=== PATIENT | male | born 1985 | race Caucasian/White ===

== ENCOUNTER 2023-04-07 09:54 | Inpatient (IN) ==
[2023-04-07] MEDS ORDERED: SODIUM CHLORIDE 0.9% 1,000 ML IV STA (10:44)
--- NOTE | 2023-04-07 10:49 | Emergency Department Note ---
History of Present Illness General Chief complaint: Referred by Doctor Stated complaint: NEEDS CT DONE Time Seen by Provider: 04/07/23 10:37 Source: patient, RN notes reviewed and old records reviewed (I have reviewed notes that are from Dr. Ambriz's office visit today) Mode of arrival: ambulatory Limitations: no limitations History of Present Illness Maximum Pain Intensity: 10 This patient is a 37-year-old male who is currently an inmate at [facility], comes in after having [place] anal pain and swelling for the last week. He says he is actually had something back there for about 2 years but got worse over the last week. He was seen by Dr. Ambriz earlier today who thought that he had a perianal abscess with possible fistula and sent him to the ER for CAT scan IV and labs. The patient has had no fever, no trauma ,no bleeding or discharge from the rectal area or abscess . no abdominal pain. Denies allergies. No history of similar . no history abdominal surgery. No history of Crohn's disease or ulcerative colitis. Home Medications Medication Instructions Recorded Confirmed Type ascorbic acid (vitamin C) 500 mg 500 mg PO DAILY 04/07/23 04/07/23 History tablet famotidine 20 mg tablet 20 mg PO DAILY 04/07/23 04/07/23 History hydrocortisone 1 % topical cream 1 applic topical TID PRN 04/07/23 04/07/23 History (Preparation H Hydrocortisone) lactobacillus combination no.4 3 3,000 mmu cells PO DAILY 04/07/23 04/07/23 History billion cell capsule (Probiotic) sertraline 25 mg tablet (Zoloft) 25 mg PO DAILY 04/07/23 04/07/23 History witch calvin 50 % topical pads 1 pad topical DAILY 04/07/23 04/07/23 History (Tucks (witch calvin)) Allergies Allergy/AdvReac Type Severity Reaction Status Date / Time No Known Allergies Allergy Verified 04/07/23 09:22 Past Med/Surg History Social History Smoking Status: Never smoker Preferred Language: Chinese Current Living Situation Comment: incarcerated Feels Safe at Home: Yes Review of Systems A total of 10 systems reviewed and were otherwise negative Physical Exam Vital Signs Vital Signs - 24 hr 04/07/23 10:17 04/07/23 10:44 04/07/23 10:45 Temperature 36.5 C Temperature Source Temporal Artery Scan Pulse Rate 112 H 102 H Pulse Rhythm Regular Pulse Rhythm [Left Finger] Regular Pulse Strength [Left Finger] Normal Respiratory Rate 18 20 Respiratory Effort / Characteristics Non-Labored Spontaneous Respiratory Depth Normal Normal Respiratory Pattern Regular Blood Pressure 116/69 Blood Pressure [Left Arm] 115/61 Blood Pressure Mean 84 Blood Pressure Mean [Left Arm] 79 Blood Pressure Position Sitting Blood Pressure Position [Left Arm] Sitting Pulse Oximetry 99 97 97 Oxygen Delivery Method Room Air Room Air Room Air Sepsis Recent Fever Within 48 Hours No Sepsis New/Unexplained Change in Mental Status No Sepsis Action Taken by Nursing No Action Required 04/07/23 12:21 Temperature Temperature Source Pulse Rate 105 H Pulse Rhythm Pulse Rhythm [Left Finger] Pulse Strength [Left Finger] Respiratory Rate Respiratory Effort / Characteristics Respiratory Depth Respiratory Pattern Blood Pressure Blood Pressure [Left Arm] Blood Pressure Mean Blood Pressure Mean [Left Arm] Blood Pressure Position Blood Pressure Position [Left Arm] Pulse Oximetry Oxygen Delivery Method Sepsis Recent Fever Within 48 Hours Sepsis New/Unexplained Change in Mental Status Sepsis Action Taken by Nursing General: Well developed well nourished slender young male who appears in no acute distress, breathing comfortably on room air. Normal speech HEENT: Normal cephalic atraumatic. Pupils are equal round and reactive to light. Extraocular movements are intact. Oropharynx is pink with moist mucous membranes. No swelling of the mouth lips or tongue. Neck: Supple with a midline trachea. No meningeal signs or stiffness, no JVD or bruits. No Stridor. Chest: Clear to auscultation bilaterally. No wheezes or rhonchi. No increased work of breathing. Heart: Regular rate and rhythm without murmurs or gallops. Abdomen: Soft nontender, nondistended without rebound guarding or rigidity. Extremities: No cyanosis clubbing or edema. No calf tenderness or assymetry Spine/Back. Non tender to palpation. No CVA tenderness Skin: Good turgor without rashes. Neurologic exam: Nonfocal moving all 4 extremities symmetrically Course Administered Medications Discontinued Medications Sodium Chloride (Nss) 1,000 mls @ 999 mls/hr IV .Q1H1M STA Stop: 04/07/23 11:44 Last Admin: 04/07/23 11:13 Dose: 999 mls/hr Documented By: SWD Piperacillin Sod/Tazobactam Sod (Zosyn) 4.5 gm in 100 mls @ 200 mls/hr IV NOW ONE Stop: 04/07/23 12:29 Last Admin: 04/07/23 12: Dose: 200 mls/hr Documented By: JOYCE Ioversol (Optiray 320 500ml) 89 ml IV ONCE ONE Stop: 04/07/23 12:09 Last Admin: 04/07/23 12:08 Dose: 89 ml Documented By: TWYLA Ketorolac Tromethamine (Ketorolac Tromethamine 15 Mg/Ml Vial) 10 mg IV NOW ONE Stop: 04/07/23 12:03 Last Admin: 04/07/23 12: Dose: 10 mg Documented By: JOYCE Medical Decision Making Differential Diagnosis Perirectal abscess, fistula, infection, sepsis, electrolyte or metabolic abnormality Medical Records Attestation: I reviewed the patient's medical records. Home Medications Current Medication List: was personally reviewed by me Laboratory Data Attestation: I reviewed the patient's lab results. 04/07/23 11:04 04/07/23 11:04 Lab Results 04/07/23 04/07/23 Range/Units 11:04 Unknown WBC 8.84 (4.8-10.8) K/ul RBC 4.64 L (4.70-6.10) M/uL Hgb 14.2 (14.0-18.0) g/dl Hct 40.2 L (42.0-52.0) % MCV 86.6 (80.0-100.0) fL MCH 30.6 (25.0-34.0) pg MCHC 35.3 (32.0-36.0) g/dL RDW Std Deviation 35.4 L (36.4-46.3) fL RDW Coeff of Arun 11.2 L (11.5-14.5) % Plt Count 109 L (130-400) K/uL MPV 9.7 (9.4-12.4) fL Immature Gran % (Auto) 0.2 % Neut % (Auto) 80.2 % Lymph % (Auto) 10.7 % [place] % (Auto) 8.8 % Eos % (Auto) 0.0 % Baso % (Auto) 0.1 % Neut # (Auto) 7.08 H (1.40-6.50) K/uL Lymph # (Auto) 0.95 L (1.20-3.40) K/uL [place] # (Auto) 0.78 H (0.11-0.59) K/uL Eos # (Auto) 0.00 (0.00-0.50) K/uL Baso # (Auto) 0.01 (0.00-0.20) K/uL Immature Gran # (Auto) 0.02 (0.01-0.20) K/uL Sodium 138 (136-145) mmol/L Potassium 3.7 (3.5-5.1) mmol/L Chloride 102 (98-107) mmol/L Carbon Dioxide 27 (21-32) mmol/L Anion Gap 9 (3-11) BUN 9 (6-23) mg/dl Creatinine 0.84 (0.6-1.4) mg/dl Est Cr Clr Drug Dosing 106.6 ml/min Est GFR ( Amer) 130.6 ml/min Est GFR (Non-Af Amer) 112.6 ml/min BUN/Creatinine Ratio 10.7 (10-20) Glucose 112 H (70-99(Fasting)) mg/dl Calcium 9.2 (8.6-10.3) mg/dl Total Bilirubin 0.9 (0.2-1.0) mg/dl AST 15 (13-39) U/L ALT 14 (7-52) U/L Alkaline Phosphatase 57 (34-104) U/L Total Protein 6.5 (6.0-8.3) gm/dl Albumin 4.3 (3.4-5.0) gm/dl Globulin 2.2 L (2.5-4.0) gm/dl Albumin/Globulin Ratio 2.0 (0.9-2) Lipase 35 (11-82) U/L Urine Color Yellow Urine Appearance Clear (Clear) Urine pH 6.0 (4.5-7.5) Ur Specific [place] 1.003 (1.000-1.030) Urine Protein Negative (Negative) Urine Glucose (UA) Negative (Negative) Urine Ketones Trace H (Negative) Urine Blood Negative (Negative) Urine Nitrite Negative (Negative) Urine Bilirubin Negative (Negative) Urine Urobilinogen Negative (Negative) Ur Leukocyte Esterase Negative (Negative) SARS-CoV-2, RNA, NAAT NEGATIVE (NEGATIVE) Imaging Data Attestation: I personally reviewed and interpreted this imaging study as follows: My Impression: CAT scan of the abdomen and pelvisthere is a large left-sided perirectal abscess Radiologist's Impression: Abdomen/Pelvis CT 04/07/23 10:44 CT abd pelvis IV con only CLINICAL HISTORY: eval for perirectal abscess/fistula TECHNIQUE: Helical axial images of the abdomen and pelvis were obtained and displayed. Automated dose lowering techniques and/or adjustment according to patient size were utilized for this exam. This exam was performed with intravenous contrast. CT DOSE: 796.77 mGy.cm COMPARISON: None available at the time of this dictation. FINDINGS: Lower chest: No acute abnormality. Liver: Unremarkable. No focal lesions are seen. Gallbladder and biliary tree: No calcified gallstones. Normal caliber wall. No intra- or extrahepatic biliary ductal dilation. Pancreas: Unremarkable, no focal lesions. Spleen: Unremarkable. Adrenals: Unremarkable. Kidneys and ureters: Unremarkable. Bladder: Unremarkable. Reproductive organs: Unremarkable. Bowel: The appendix is normal. There is a large perirectal abscess on the left measuring 30 x 68 mm with surrounding fat stranding. There is a likely tract extending to the rectum. Lymph nodes Retroperitoneal: Unremarkable. Pelvic: Unremarkable. Mesenteric: Unremarkable. Peritoneum: Normal. Vessels: Unremarkable. Abdominal wall: Bilateral fat-containing inguinal hernias are seen. Bones: Unremarkable. IMPRESSION: Large left perirectal abscess is seen with associated cellulitis. ACT 112: Negative or not required by law. Electronically signed by: Elan Phillips M.D. 04/07/2023 12:33 PM [facility] Narrative This patient comes in as described above. He was placed in room C3. He is here for treatment evaluation of rectal pain and swelling with a perirectal abscess. He was seen by his surgeon Dr. Ambriz earlier who sent him to the ER for CAT scan labs and likely admission. I did order IV as well as normal saline bolus 1 L. Multiple blood testing was obtained and I ordered a CAT scan as well. He was reassessed frequently. His white count is not elevated and he is afebrile here he has no significant anemia he is no significant provide or metabolic abnormalities. COVID testing was negative. He was given Zosyn 4.5 g IV for antibiotic coverage and Toradol 10 mg IV for pain. CAT scan was obtained and shows a large left-sided perirectal abscess. I did talk to Dr. Ambriz in consultation and he plans on admitting the patient for IV antibiotics and surgery. Impression & Plan Abscess, perirectal, Pain in rectum, Lab test negative for COVID-19 virus Discharge Plan Visit Data Chief Complaint: Referred by Doctor Stated Complaint: NEEDS CT DONE ED Provider: Louis Montgomery Discharge Problem: Abscess, perirectal, Pain in rectum, Lab test negative for COVID-19 virus Forms Stand Alone Forms: My [facility] Prescriptions Prescriptions: No Action sertraline [Zoloft] 25 mg tablet 25 mg PO DAILY famotidine 20 mg tablet 20 mg PO DAILY Probiotic 3 billion cell capsule 3,000 mmu cells PO DAILY Rx Instructions: administer with a meal ascorbic acid (vitamin C) 500 mg tablet 500 mg PO DAILY Tucks (witch calvin) 50 % pads, medicated 1 pad topical DAILY hydrocortisone [Preparation H Hydrocortisone] 1 % cream 1 applic topical TID PRN Referrals Referrals: PCP,NO [Physician] -
[2023-04-07 11:31] LABS: Basophils # (auto) 0.01 K/uL (0.00-0.20); Basophils % (auto) 0.1 %; Hematocrit (blood only) 40.2 % (42.0-52.0); Hemoglobin 14.2 g/dl (14.0-18.0); Immature Granulocytes # (auto) 0.02 K/uL (0.01-0.20); Immature Granulocytes % (auto) 0.2 %; Lymphocytes # (auto) 0.95 K/uL (1.20-3.40); Lymphocytes % (auto) 10.7 %; Mean Corpuscular Hemoglobin 30.6 pg (25.0-34.0); Mean Corpuscular Hgb Conc 35.3 g/dL (32.0-36.0); Mean Corpuscular Volume 86.6 fL (80.0-100.0); Mean Platelet Volume 9.7 fL (9.4-12.4); Monocytes # (auto) 0.78 K/uL (0.11-0.59); Monocytes % (auto) 8.8 %; Neutrophils # (auto) 7.08 K/uL (1.40-6.50); Neutrophils % (auto) 80.2 %; Platelet Count 109 K/uL (130-400); RDW Coefficient of Variation 11.2 % (11.5-14.5); RDW Standard Deviation 35.4 fL (36.4-46.3); Red Blood Count 4.64 M/uL (4.70-6.10); White Blood Count 8.84 K/ul (4.8-10.8)
[2023-04-07 11:49] LABS: Albumin Level 4.3 gm/dl (3.4-5.0); BUN Creatinine Ratio 10.7 (10-20); Bilirubin,Total 0.9 mg/dl (0.2-1.0); Calcium 9.2 mg/dl (8.6-10.3); Creatinine Clr Calc Pharmacy 106.6 ml/min; Est GFR (African American) 130.6 ml/min; Est GFR (Non-African American) 112.6 ml/min; Globulin 2.2 gm/dl (2.5-4.0); Potassium 3.7 mmol/L (3.5-5.1); Total Protein 6.5 gm/dl (6.0-8.3)
[2023-04-07] MEDS ORDERED: PIPERACILLIN/TAZOBACTAM 4.5 GM/100 ML BAG IV ONE (12:00)
[2023-04-07] MEDS ORDERED: KETOROLAC TROMETHAMINE 15 MG/ML VIAL IV ONE (12:02)
[2023-04-07 12:03] LABS: Appearance Urine Clear (Clear); Bilirubin Urine Negative (Negative); Blood Urine Negative (Negative); Color Urine Yellow; Glucose Urine UA Negative (Negative); Ketones Urine Trace (Negative); Leukocyte Esterase Urine Negative (Negative); Nitrite Urine Negative (Negative); Protein Urine Negative (Negative); Specific Gravity Urine 1.003 (1.000-1.030); Urobilinogen Urine Negative (Negative)
[2023-04-07] MEDS ORDERED: OPTIRAY 320 500ml IV ONE (12:08)
--- NOTE | 2023-04-07 12:35 | CT Scan Report ---
CT abd pelvis IV con only CLINICAL HISTORY: eval for perirectal abscess/fistula TECHNIQUE: Helical axial images of the abdomen and pelvis were obtained and displayed. Automated dose lowering techniques and/or adjustment according to patient size were utilized for this exam. This e xam was performed with intravenous contrast. CT DOSE: 796.77 mGy.cm COMPARISON: None available at the time of this dictation. FINDINGS: Lower chest: No acute abnormality. Liver: Unremarkable. No focal lesions are seen. Gallbladder and biliary tree: No calcified gallstones. Normal caliber wall. No intra- or extrahepatic biliary ductal dilation. Pancreas: Unremarkable, no focal lesions. Spleen: Unremarkable. Adrenals: Unremarkable. Kidneys and ureters: Unremarkable. Bladder: Unremarkable. Reproductive organs: Unremarkable. Bowel: The appendix is normal. There is a large perirectal abscess on the left measuring 30 x 68 mm w ith surrounding fat stranding. There is a likely tract extending to the rectum. Lymph nodes Retroperitoneal: Unremarkable. Pelvic: Unremarkable. Mesenteric: Unremarkable. Peritoneum: Normal. Vessels: Unremarkable. Abdominal wall: Bilateral fat-containing inguinal hernias are seen. Bones: Unremarkable. IMPRESSION: Large left perirectal abscess is seen with associated cellulitis. ACT 112: Negative or not required by law. Electronically signed by: Elan Phillips M.D. 04/07/2023 12:33 PM
--- NOTE | 2023-04-07 12:58 | History & Physical Bridge Note ---
Date of Service April 07, 2023 History & Physical Bridge Note I have examined the patient, reviewed the History & Physical and in the interval since the performance of the History & Physical I have noted the following changes of clinical significance: no changes noted ct reviewed. large abcess. likely associated fistula. will plan incision and drainage today. discussed risks/options.
[2023-04-07] MEDS ORDERED: LACTATED RINGER'S 1,000 ML IV SCH (14:00)
[2023-04-07] MEDS ORDERED: DEXAMETHASONE SOD INJ 4 MG/ML VIAL ONE (14:15)
[2023-04-07] MEDS ORDERED: LIDOCAINE 2% 2 ML VIAL/AMP(20MG/ML) INFIL ONE (14:15)
[2023-04-07] MEDS ORDERED: PROPOFOL IV EMULSION 10 MG/ML 20 ML VIAL IV ONE (14:15)
[2023-04-07] MEDS ORDERED: fentaNYL citrate PF 100 MCG/2 ML VIAL ONE ×2 (14:15→14:54)
[2023-04-07] MEDS ORDERED: ONDANSETRON INJ 2 MG/ML 2 ML VIAL ONE (14:15)
[2023-04-07] MEDS ORDERED: MIDAZOLAM HCL 1 MG/ML 2ML VIAL ONE (14:15)
[2023-04-07] MEDS ORDERED: ONDANSETRON INJ 2 MG/ML 2 ML VIAL IV PRN ×2 (14:28→16:58)
[2023-04-07] MEDS ORDERED: fentaNYL citrate PF 100 MCG/2 ML VIAL IV PRN (14:28)
[2023-04-07] MEDS ORDERED: ATROPINE SULFATE 0.1 MG/ML 10ML SYR IV PRN (14:28)
[2023-04-07] MEDS ORDERED: ePHEDrine sulfate 50 MG/ML AMP IV PRN (14:28)
[2023-04-07] MEDS ORDERED: PROMETHAZINE HCL 6.25 MG in SODIUM CHLORIDE 0.9% 50 ML IV PRN (14:28)
--- NOTE | 2023-04-07 14:28 | Anesthesiology Consultation ---
Date of Service April 07, 2023 Assessment & Plan Chart Review Chart Review: Acceptable Risk for Surgery and Patient NOT seen in Pre Admission Testing Consults Requested none ASA ASA1 Proposed Anesthesia Anesthesia Type: General Risk / Benefits Reviewed With: PT / POA / Parent / Guardian, Accepts Plan and Informed Consent Obtained History Surgery Operation Date: 04/07/23 07:00 Proposed Procedures p Incision and Drainage Perianal Abscess - Tre Ambriz, DO Height/Weight Height: 5 ft 7 in Weight: 62 kg Allergies Allergy/AdvReac Type Severity Reaction Status Date / Time No Known Allergies Allergy Verified 04/07/23 09:22 Medications Home Medications Medication Instructions Recorded Confirmed Last Taken ascorbic acid (vitamin C) 500 mg 500 mg PO DAILY 04/07/23 04/07/23 Unknown tablet famotidine 20 mg tablet 20 mg PO DAILY 04/07/23 04/07/23 Unknown hydrocortisone 1 % topical cream 1 applic topical TID PRN 04/07/23 04/07/23 Unknown (Preparation H Hydrocortisone) lactobacillus combination no.4 3 3,000 mmu cells PO DAILY 04/07/23 04/07/23 Unknown billion cell capsule (Probiotic) sertraline 25 mg tablet (Zoloft) 25 mg PO DAILY 04/07/23 04/07/23 Unknown witch calvin 50 % topical pads 1 pad topical DAILY 04/07/23 04/07/23 Unknown (Tucks (witch calvin)) Active Medications Generic Name Dose Route Start Last Admin Trade Name Freq PRN Reason Stop Dose Admin Lactated Ringer's 1,000 mls @ 15 mls/hr 04/07/23 14:00 04/07/23 13:55 Lr IV 05/07/23 13:59 15 mls/hr .Q24H JUAQUIN Administration NPO Date Last Intake of Fluids: 04/07/23 Time Last Intake of Fluids: 08:00 Last Intake of Fluids Comment: Pt reports drinking approximately 1/2 gallon total of black coffee & water Exercise / Class Metabolic Activity II 4-5 Yardwork/Stairs/Walk up hill Past Anesthesia History No Hx of Anesthesia Complications and No Family Hx of Anesthesia Complications History of PONV No Hx of PONV and No Hx of Motion Sickness Social History Smoking Status: Never smoker Physical Exam Vital Signs Last Vital Signs Temp 37 C 04/07/23 13:40 Pulse 96 H 04/07/23 13:40 Resp 20 04/07/23 13:40 BP 128/64 04/07/23 13:40 Pulse Ox 100 04/07/23 13:40 O2 Del Method Room Air 04/07/23 13:40 ENMT Mouth: no dentition abnormality Thyromental Distance: > or= 3.5 Finger Breadths Mallampati Class: II Neck normal visual inspection Respiratory normal respiratory effort Auscultation: lungs clear to auscultation bilaterally Cardiovascular Rate/Rhythm: regular rate and regular rhythm Psychiatric Orientation: alert Testing Laboratory Results 04/07/23 11:04 04/07/23 11:04 Urine Color Yellow 04/07/23 Unknown Urine Appearance Clear (Clear) 04/07/23 Unknown Urine pH 6.0 (4.5-7.5) 04/07/[address] 1.003 (1.000-1.030) 04/07/23 Unknown Urine Protein Negative (Negative) 04/07/23 Unknown Urine Glucose (UA) Negative (Negative) 04/07/23 Unknown Urine Ketones Trace (Negative) H 04/07/23 Unknown Urine Nitrite Negative (Negative) 04/07/23 Unknown Ur Leukocyte Esterase Negative (Negative) 04/07/23 Unknown
[2023-04-07] MEDS ORDERED: BUPIVACAINE LIPOSOME 1.3% 266 MG/20 ML VIAL ONE (14:33)
[2023-04-07] MEDS ORDERED: HYDROmorphone INJ 2 MG/ML SYR/VIAL ONE (15:11)
--- NOTE | 2023-04-07 15:32 | Operative Report ---
PG Post Operative Report Pre & Post Diagnosis Operation Date: 04/07/23 07:00 <No data on this case meets the specified criteria> Pre op diagnosis: cecilia-anal abcess post op diagnosis: same I identified the patient and participated in the time-out.: Yes Procedure Operation Date: 04/07/23 07:00 <No data on this case meets the specified criteria> incision and drainage of cecilia-anal abcess Surgeon Tre Ambriz, DO Cardiac Care Nurse none Estimated Blood Loss 25 Findings Consistent with Post-Op Diagnosis Specimens fluid for gram stain/culture/sensitivity Description of Procedure After informed consent was obtained the patient was taken the operating room placed in supine position. After successful placement of a laryngeal mask airway the patient was placed into high lithotomy position. The entire perineum and rectum were sterilely prepped and draped in usual fashion. A 15 blade scalpel was used to make a vertical incision directly over the visible/ palpable abscess. I immediately encountered a large amount of purulent foul-smelling fluid. A Sample was taken and sent for Gram stain culture and sensitivity. I was able to finger fractionate the entire cavity which extended superiorly towards the scrotum as well as posteriorly. I then thoroughly irrigated the wound. 1/2 inch Garo drain was placed into the cavity and sutured to the skin using 2-0 silk. 20 cc of Exparel was injected around the surgical site for postoperative analgesia. Gauze and cecilia-pad was placed. Patient was placed in the supine position extubated and transferred to recovery in stable condition. I attest to the content of the Intraoperative Record and any orders documented therein. Any exceptions are noted below.
--- NOTE | 2023-04-07 15:41 | Anesthesiology Progress Note ---
Date of Service April 07, 2023 Anesthesia Post Procedure Vital Signs Vital Signs: Temp Pulse Pulse Pulse Resp BP BP 04/07/23 13:40 37 C 96 H 20 128/64 04/07/23 12:21 105 H 04/07/23 12:00 104 H 20 124/70 04/07/23 10:45 115/61 04/07/23 10:44 102 H 20 04/07/23 10:17 36.5 C 112 H 18 116/69 Pulse Ox O2 Del Method 04/07/23 13:40 100 Room Air 04/07/23 12:21 04/07/23 12:00 97 Room Air 04/07/23 10:45 97 Room Air 04/07/23 10:44 97 Room Air 04/07/23 10:17 99 Room Air Pain Intensity Rectal: Pain Intensity: 10 Transfer of Care Handoff Completed per policy Notes Mental Status: alert / awake / arousable Patient Amnestic to Procedure: Yes Nausea / Vomiting: adequately controlled Pain: adequately controlled Airway Patency, RR, SpO2: stable & adequate BP & HR: stable & adequate Hydration State: stable & adequate Anesthetic Complications: no major complications apparent
[2023-04-07] MEDS ORDERED: MoRPHine SULFATE 2 MG/ML CARP IV PRN (16:58)
[2023-04-07] MEDS: LACTATED RINGER'S 1,000 ML IV SCH (17:24)
[2023-04-07] MEDS: ACETAMINOPHEN 1,000 MG/100 ML VIAL IV SCH (18:19)
[2023-04-07] MEDS: PIPERACILLIN/TAZOBACTAM 4.5 GM in DEXTROSE 5% MINI-B 100 ML IV SCH (18:38)
[2023-04-07] MEDS: oxyCODONE HCL IR 5 MG TAB (IMMEDIATE RELEASE) PO PRN (20:12)
[2023-04-08] MEDS: oxyCODONE HCL IR 5 MG TAB (IMMEDIATE RELEASE) PO PRN ×3 (00:21→11:36)
[2023-04-08] MEDS: ACETAMINOPHEN 1,000 MG/100 ML VIAL IV SCH ×2 (02:29→09:55)
[2023-04-08] MEDS: PIPERACILLIN/TAZOBACTAM 4.5 GM in DEXTROSE 5% MINI-B 100 ML IV SCH ×2 (02:55→10:21)
[2023-04-08] MEDS: LACTATED RINGER'S 1,000 ML IV SCH (05:14)
[2023-04-08 06:33] LABS: Basophils # (auto) 0.01 K/uL (0.00-0.20); Basophils % (auto) 0.1 %; Hematocrit (blood only) 38.7 % (42.0-52.0); Hemoglobin 13.8 g/dl (14.0-18.0); Immature Granulocytes # (auto) 0.04 K/uL (0.01-0.20); Immature Granulocytes % (auto) 0.5 %; Lymphocytes # (auto) 1.06 K/uL (1.20-3.40); Lymphocytes % (auto) 12.6 %; Mean Corpuscular Hemoglobin 30.6 pg (25.0-34.0); Mean Corpuscular Hgb Conc 35.7 g/dL (32.0-36.0); Mean Corpuscular Volume 85.8 fL (80.0-100.0); Mean Platelet Volume 10.2 fL (9.4-12.4); Monocytes # (auto) 0.32 K/uL (0.11-0.59); Monocytes % (auto) 3.8 %; Platelet Count 127 K/uL (130-400); RDW Coefficient of Variation 11.2 % (11.5-14.5); RDW Standard Deviation 34.8 fL (36.4-46.3); Red Blood Count 4.51 M/uL (4.70-6.10); White Blood Count 8.43 K/ul (4.8-10.8)
[2023-04-08 06:55] LABS: Calcium 8.9 mg/dl (8.6-10.3); Creatinine Clr Calc Pharmacy 104.1 ml/min; Est GFR (African American) 129.3 ml/min; Est GFR (Non-African American) 111.6 ml/min; Potassium 3.3 mmol/L (3.5-5.1)
[2023-04-08] MEDS ORDERED: SERTRALINE HCL 50 MG TABLET PO SCH (09:00)
[2023-04-08] MEDS ORDERED: POTASSIUM CHLORIDE CRTAB 20 MEQ TABCR PO STA (09:34)
--- NOTE | 2023-04-08 10:10 | Surgery Progress Note ---
Date of Service April 08, 2023 Assessment & Plan (1) Abscess, perirectal: Plan: Pt reports pain is tolerable with IV Tylenol and PO med states he had sweats over night, not feeling feverish, no documented fevers VSS. Denies CP, SOB, N,V Concern with having a bowel movement post procedure, reinfection, and pain control once he is back at his facility. Currently receiving IV Zosyn [facility] facilities typically have Tylenol with codeine , will write for this on D/C instructions. Instructed to cleanse rectal area with NSS after BMs and BID. As above. Okay for discharge. Instructions given. I recommend sitz bath's if available at the facility as well as stool softeners twice daily. He will also need antibiotics for approximately 10 days (2) Hypokalemia: Plan: K+ was 3.3 ordered 40MEQ PO stat Admission and Anticipated Discharge Date Admission Date: April 07, 2023 Subjective Pt reports pain is tolerable with IV Tylenol and PO med states he had sweats over night Concern with having a bowel movement post procedure and pain control once he is back at his facility. Review of Systems Constitutional: + chills (over night) and + sweats; no f ever Eyes: + corrective lenses Ear, Nose, Mouth, Throat: no problem reported Respiratory: no cough and no dyspnea Cardiovascular: no chest pain Gastrointestinal: no abdominal pain, no nausea and no vomiting Genitourinary: no dysuria Musculoskeletal: no muscle weakness Neurologic: no confusion Physical Exam Physical Exam: alert oriented Constitutional: well developed, cooperative and comfortable; no acute distress ENMT: external ear and nose normal, oropharynx normal Respiratory: normal respiratory effort and able to speak in complete sentences; no respiratory distress Cardiovascular: Rate/Rhythm: regular rate Gastrointestinal (Abdomen): Inspection/Auscultation: abdomen not distended Post operative [place] drain in place, small amount of bloody drainage noted on gauze Results & Data Vital Signs (Past 12 Hours) Vital Signs Temp Pulse Resp BP Pulse Ox O2 Del Method 04/08/23 07:32 97.7 F 71 15 112/70 97 Room Air 04/08/23 05:30 98.1 F 04/07/23 23:53 98.6 F 67 18 101/62 97 Room Air Results Complete Blood Count Results: RBC 4.51 M/uL (4.70-6.10) L 12/20/23 WBC 8.43 K/ul (4.8-10.8) 04/08/23 Hgb 13.8 g/dl (14.0-18.0) L 04/08/23 Hct 38.7 % (42.0-52.0) L 04/08/23 Plt Count 127 K/uL (130-400) L 04/08/23 Results BMP Results: Sodium 141 mmol/L (136-145) 04/08/23 Potassium 3.3 mmol/L (3.5-5.1) L 04/08/23 Chloride 108 mmol/L (98-107) H 04/08/23 Carbon Dioxide 22 mmol/L (21-32) 04/08/23 Anion Gap 11 (3-11) 04/08/23 BUN 12 mg/dl (6-23) 04/08/23 Creatinine 0.86 mg/dl (0.6-1.4) 04/08/23 Glucose 154 mg/dl (70-99(Fasting)) H 04/08/23 PG Care Time/CCT Total # of Minutes Spent Total Time Spent with Patient: Total time spent is greater than 50% in coordination of care (as documented) at patient's floor/unit and/or counseling patient: Coding Level of Care Code 05763 Post Operative Follow-Up Diagnoses Abscess, perirectal K61.1 Hypokalemia E87.6
[2023-04-08] MEDS ORDERED: bisacodyL 5 MG TABEC PO ONE (11:54)
--- NOTE | 2023-04-15 07:53 | Coding Query ---
CODING QUERY To promote full compliance with coding requirements relating to patient care, provider participation is requested in all cases of barrel rifler uncertainty. Please assist us with the question(s) below: Coding Question(s): Documentation seems to use "perianal" and "perirectal" interchangeably. Additionally the op report does not seem to specify the exact location of the drainage. Could you please verify the body part of this abscess and subsequent drainage? Physician's Response(s): ( ) Perianal ( x ) Perirectal ( ) Other, please specify Thank you Maryjo Giron Principal Diagnosis: "that condition established after study, to be chiefly responsible for occasioning the admission of the patient to the hospital for care." Co-Existing Principal Diagnosis: "when two or more diagnoses equally meet the criteria for principal diagnosis as determined by the circumstances of admission, diagnostic work up, and/or therapy provided, and the Alphabetic Index, Tabular List, or another coding guideline does not provide sequencing direction, any one of the diagnoses may be sequenced first." "When the physician has documented what appears to be a current diagnosis in the body of the record, but has not included the diagnosis in the final diagnostic statement, the physician should be asked whether the diagnosis should be added." (Source Coding Clinic 2 QTR90. p3-4) VERONICA
== END 2023-04-08 16:26 | DRG 346 ==
LOC: ED 09:54 → OR 13:47 → 3E 13:47
DX: K61.1 Rectal abscess; E87.6 Hypokalemia; Z79.899 Other long term (current) drug therapy